=== PATIENT | female | born 1980 | race Caucasian/White ===

== ENCOUNTER 2017-06-17 07:34 | Day surgery (SDC) | payer BC ==
[~2017-06-17 07:34] MED LIST: Bupivacaine 0.5%/EPINEPHrine 1:200,000 50 ML MDV ONE; Dexamethasone 4 MG/ML SDV ONE; Glycopyrrolate 0.2 MG/ML 5 ML MDV ONE; Neostigmine Methylsulfate 1 MG/ML 5 ML Syringe ONE; Ondansetron 4 MG/2 ML SDV ONE; Propofol 200 MG/20 ML SDV ONE; Rocuronium 50 MG/5 ML Vial ONE; Succinylcholine 200 MG/10 ML MDV ONE
[2017-06-17] MEDS ORDERED: ceFAZolin 2 GM in Premix Bag 1 BAG IV ONE (08:00)
[2017-06-17] MEDS ORDERED: ceFAZolin 2 GM in Sodium Chloride 0.9% 50 ML IV ONE (08:00)
[2017-06-17] MEDS: Dextrose 5%-Lactated Ringers 1,000 ML IV SCH ×3 (08:28→16:31)
[2017-06-17] MEDS ORDERED: HYDROmorphone/Normal Saline 15 MG/30 ML PCA IV PRN (08:56)
[2017-06-17] MEDS ORDERED: Naloxone 0.4 MG/ML SDV IV PRN (08:57)
[2017-06-17] MEDS ORDERED: Meropenem 500 MG SDV ONE (09:21)
[2017-06-17] MEDS ORDERED: hydrOXYzine HCl 100 MG/2 ML SDV IM ONE (10:45)
[2017-06-17] MEDS ORDERED: fentaNYL 100 MCG/2 ML SDV IVPUSH ONE (11:00)
[2017-06-17] MEDS ORDERED: hydrOXYzine HCl 25 MG Tab PO PRN (12:29)
[2017-06-17] MEDS ORDERED: hydrOXYzine HCl 100 MG/2 ML SDV IM PRN (12:29)
[2017-06-17] MEDS ORDERED: Ondansetron 4 MG/2 ML SDV IV PRN (12:29)
[2017-06-17] MEDS ORDERED: Acetaminophen/oxyCODONE 325-5 MG Tab PO PRN (12:30)
[2017-06-17] MEDS: Cyclobenzaprine 10 MG Tab PO PRN (15:47)
[2017-06-17] MEDS ORDERED: HYDROmorphone 2 MG Tab PO PRN (15:58)
[2017-06-17] MEDS: ceFAZolin 2 GM in Sodium Chloride 0.9% 50 ML IV SCH (16:18)
[2017-06-17] MEDS: Acetaminophen 500 MG Tab PO SCH ×2 (16:25→21:38)
[2017-06-17] MEDS ORDERED: Nicotine 14 MG/24 Hr Patch TRDERM SCH (16:30)
[2017-06-17] MEDS: Ibuprofen 800 MG Tab PO SCH (20:36)
[2017-06-18] MEDS: Dextrose 5%-Lactated Ringers 1,000 ML IV SCH (00:03)
[2017-06-18] MEDS: Ibuprofen 800 MG Tab PO SCH (01:27)
[2017-06-18] MEDS: ceFAZolin 2 GM in Sodium Chloride 0.9% 50 ML IV SCH (01:28)
[2017-06-18 01:39] VITALS: BP 115/66
[2017-06-18] MEDS: Acetaminophen 500 MG Tab PO SCH (04:31)
[2017-06-18] MEDS: Cyclobenzaprine 10 MG Tab PO PRN (04:33)
--- NOTE | 2017-06-18 08:51 | DISCH ---
ADMISSION DIAGNOSIS: Incarcerated umbilical and incisional hernia. DISCHARGE DIAGNOSES: Laparoscopic repair of recurrent incarcerated umbilical hernia and recurrent incarcerated incisional hernia. Date of surgery, 06/17/2017. HISTORY: Anjali Velasquez is a 37-year-old female with an umbilical and incisional hernia. After preoperative evaluation and discussion of possible risks and possible complications, she wished to proceed with surgical procedure. HOSPITAL COURSE: Anjali had her surgery on 06/17/2017. She had no complications. On postop day #1, she was tolerating a diet well. Her activity was good. Her pain was controlled. Vital signs were stable. She was ready to be discharged to home. PHYSICAL EXAMINATION: GENERAL: Anjali Velasquez is a 37-year-old female. VITAL SIGNS: Height is 5 feet 2.5 inches. Weight is 195 pounds. TPR is 97.8, 61, 20, and blood pressure 115/66. HEENT: Negative. NECK: Supple. HEART: Regular rate and rhythm. LUNGS: Clear. ABDOMEN: Dressings dry and intact. Abdominal binder is on. EXTREMITIES: Without peripheral edema. DISPOSITION: Discharged to home. CONDITION: Stable and improving. FOLLOWUP: With Shauna Booth PA-C, on 07/02/2017 at 9 a.m. DISCHARGE MEDICATIONS: Home medications; 1. Tylenol Extra Strength a 1000 mg q.6 hours x2 weeks. 2. Flexeril 10 mg q.8 hours p.r.n. muscle spasms, #30. 3. Dilaudid 2 mg 1 to 2 q.4 hours p.r.n. pain, #30. 4. Ibuprofen 800 mg q.8 hours p.r.n. pain. 5. Resume home medications of Imodium 2 mg oral p.r.n. diarrhea. DISCHARGE DIET: Usual diet as tolerated. Drink 8 to 10 glasses of water a day. ACTIVITY: As tolerated. No lifting greater than 10 pounds for 6 weeks. Shower/bathing, may shower. DISCHARGE INSTRUCTIONS: Notify provider of fever, increased pain, nausea, or vomiting. Keep site clean and dry. Wear abdominal binder with a rolled-up washcloth or Kerlix gauze over hernia site for 6 weeks. Use incentive spirometer 10 times every hour while awake.
--- NOTE | 2017-06-18 13:09 | OR ---
DATE OF PROCEDURE: 06/17/2017 PREOPERATIVE DIAGNOSIS: Incarcerated incisional hernia. POSTOPERATIVE DIAGNOSES: 1. Recurrent incarcerated umbilical hernia. 2. Primary incarcerated incisional hernia. OPERATIVE PROCEDURE: Diagnostic laparoscopy with: 1. Laparoscopic repair of an incisional hernia with mesh. 2. Laparoscopic repair of recurrent incarcerated umbilical hernia with mesh. ANESTHESIA: General. YARN HANDLER: Shauna Booth PA-C. INDICATIONS FOR PROCEDURE: This is a 37-year-old presenting with recurrent hernia in the area above the umbilicus. The patient had undergone a previous umbilical hernia repair. This appeared to be somewhat above this likely related to other incisions such as her section incision. The plan is to proceed with a laparoscopy with laparotomy if necessary and repair of the hernias as indicated. Potential risks including bleeding, infection, injury to underlying viscera, problems with the hernia recurring or the mesh becoming infected were all reviewed, and the patient wishes to proceed. DETAILS OF PROCEDURE: The patient was taken to the operating room and placed in the supine position. After general endotracheal anesthesia was induced, a Justice catheter was inserted and the abdomen was prepped and draped. In the lateral left mid abdomen, a transverse incision was made. The peritoneal cavity entered under direct vision with an Optiview trocar inflated to 15 mmHg pressure with CO2. Laparoscope was then reinserted. No underlying trocar insertion site injuries were seen. Following this, 5 mm trocars were placed in the left subcostal and left upper quadrant areas x2 and the hernia was inspected. The patient was found to have 2 distinct hernias that are more or less [id number]. One was a recurrence of the umbilical hernia, which had an incarcerated omentum within it, and the patient had what appeared to be a primary incisional hernia located superior to that. This was the larger of the 2 hernias that also had contained an incarcerated omentum. Both hernias were then reduced by means of a Harmonic scalpel dissection and external pressure and the hernia sac and contents removed. After the incision was mapped out and a Ventralight ST hernia mesh measuring 20.3 cm x 25.4 cm was selected at the long axis ends of the mesh, 2-0 Vicryl stitches were placed to help orient it. This was then placed in an antibiotic-containing saline solution and then placed in the intraperitoneal location. The sutures were then pulled up through the premarked locations to gently affix the mesh in place and a central stab wound was also placed to pull the positioning catheter up in place as well. This then allowed inflation of balloon, which applied the mesh up against the abdominal wall. The mesh was then circumferentially affixed with absorbable tacking screws. Two 5 mm trocars were then placed on the right side of the wall to help to place the tacking screws on the left side of the mesh. At that point, the balloon system was then deflated and the balloon removed. Good fixation of the mesh was evident in all areas and the original 12 mm trocar site was closed at the fascia level with 0 Vicryl stitch and the skin with 4-0 Vicryl skin stitch. Dressing was applied. The patient was taken to the recovery room in satisfactory condition. Physician medical billing assistant, Shauna Booth PA-C, played an essential role in assisting in this case helping to position the patient, retract structures as indicated, as well as suturing and cutting sutures when indicated. Her presence improved the patient's safety and decreased operative time. Som Flynn MD /[id number]
== END 2017-06-18 08:40 | disposition home or self-care (01) ==
LOC: JP.SDS 07:34 → JP.2SS 10:30 → JP.SDS 06-18 08:40
PROVIDERS: ATTEND Surgery
DX: K43.2 Incisional hernia without obstruction or gangrene (principal); K42.0 Umbilical hernia with obstruction, without gangrene; F17.210 Nicotine dependence, cigarettes, uncomplicated; B19.10 Unspecified viral hepatitis B without hepatic coma; E66.9 Obesity, unspecified; F41.9 Anxiety disorder, unspecified; K52.9 Noninfective gastroenteritis and colitis, unspecified; J45.990 Exercise induced bronchospasm; Z98.890 Other specified postprocedural states; Z79.899 Other long term (current) drug therapy
CPT/HCPCS: 49653; 49655; 94762; A9270; C1781; J0330; J0690; J1100; J1170; J2185; J2405; J2704; J2710; J3010; J3410; J7042; J7050; 88302